=== PATIENT | male | born 1990 | race African-American/Black ===

== ENCOUNTER 2018-06-04 20:03 | Emergency (ER) | payer OTHER ==
[~2018-06-04] VITALS: Ht 188 cm; Wt 70.3 kg
--- NOTE | 2018-06-04 20:08 | ED.ADGEN ---
Adult General Chief Complaint Chief Complaint ".. I fell ... skate boarding..went down hard on this Lt elbow..." HPI HPI Patient is a 28 year old male who presents with above hx and complaints fall from a skateboard onto left elbow. Distal neurovascular intact. But his range of motion is limited in the left elbow. Patient is right-hand dominant. No other injuries. Patient normally healthy. No history immunosuppression. Patient travel. No history of ill contacts. Review of Systems Review of Systems Constitutional: Denies fever or chills [] Eyes: Denies change in visual acuity, redness, or eye pain [] HENT: Denies nasal congestion or sore throat [] Respiratory: Denies cough or shortness of breath [] Cardiovascular: No additional information not addressed in HPI [] GI: Denies abdominal pain, nausea, vomiting, bloody stools or diarrhea [] : Denies dysuria or hematuria [] Musculoskeletal: Denies back pain or joint pain []complains of left elbow pain Integument: Denies rash or skin lesions [] Neurologic: Denies headache, focal weakness or sensory changes [] Endocrine: Denies polyuria or polydipsia [] All other systems were reviewed and found to be within normal limits, except as documented in this note. Family History Family History Noncontributory Current Medications Current Medications Current Medications Medications (Trade) Dose Ordered Sig/Felicita Start Time Stop Time Status Last Admin Dose Admin Hydrocodone Bitartrate/ Ibuprofen (Vicoprofen 7.5-200) 2 tab 1X ONCE 06/04/18 21:15 06/04/18 21:16 DC 06/04/18 21:06 2 TAB Allergies Allergies Allergies Coded Allergies Type Severity Reaction Last Updated Verified No Known Drug Allergies 06/04/18 No Physical Exam Physical Exam Constitutional: Well developed, well nourished, moderate acute distress, non- toxic appearance. [] HENT: Normocephalic, atraumatic, bilateral external ears normal, oropharynx moist, no oral exudates, nose normal. [] Eyes: PERRLA, EOMI, conjunctiva normal, no discharge. [] Neck: Normal range of motion, no tenderness, supple, no stridor. [] Cardiovascular:Heart rate regular rhythm, no murmur [] Lungs & Thorax: Bilateral breath sounds clear to auscultation [] Abdomen: Bowel sounds normal, soft, no tenderness, no masses, no pulsatile masses. [] Skin: Warm, dry, no erythema, no rash. [] Back: No tenderness, no CVA tenderness. [] Extremities: No tenderness, no cyanosis, no clubbing, ROM intact, no edema. [] Except findings in left elbow Neurologic: Alert and oriented X 3, normal motor function, normal sensory function, no focal deficits noted. [] Psychologic: Affect anxious, judgement normal, mood normal. [] Current Patient Data Vital Signs Vital Signs Date Time Temp Pulse Resp B/P (MAP) Pulse Ox O2 Delivery O2 Flow Rate FiO2 06/04/18 20:24 98.3 68 18 99 Room Air EKG EKG [] Radiology/Procedures Radiology/Procedures Interpretation left elbow film shows edema. There appears to be a possible radial head fracture. See formal report when available[] Course & Med Decision Making Course & Med Decision Making Pertinent Labs and Imaging studies reviewed. (See chart for details) Ice, elevation, splint, sling, Tylenol and ibuprofen for pain. Follow-up primary care. Follow-up orthopedics. [] Final Impression Final Impression 1. Lt. Elbow[]-radial head fracture and contusion Dragon Disclaimer Dragon Disclaimer This electronic medical record was generated, in whole or in part, using a voice recognition dictation system. Discharge Summary Visit Information Final Diagnosis Problems Medical Problems: (1) Elbow disorder Status: Acute Brief Hospital Course Allergies Allergies Coded Allergies Type Severity Reaction Last Updated Verified No Known Drug Allergies 06/04/18 No Vital Signs Vital Signs Date Time Temp Pulse Resp B/P (MAP) Pulse Ox O2 Delivery O2 Flow Rate FiO2 06/04/18 20:24 98.3 68 18 99 Room Air Brief Hospital Course Mr. Espinosa is a 28 old male who presented with Lt. elbow contusion and radial head fx. Discharge Information Condition at Discharge: Improved, Stable Disposition/Orders: D/C to Home Dischare Medications Current Medications Hydrocodone Bitartrate/ Ibuprofen (Vicoprofen 7.5-200) 2 tab 1X ONCE PO Last administered on 06/04/18at 21:06; Admin Dose 2 TAB; Start 06/04/18 at 21:15; Stop 06/04/18 at 21:16; Status DC Dragon Disclaimer This chart was dictated in whole or in part using Voice Recognition software in a busy, high-work load, and often noisy Emergency Department environment. It may contain unintended and wholly unrecognized errors or omissions. JACOB ANDREW MD Jun 04, 2018 20:08
[2018-06-04 20:24] VITALS: BP 106/70
--- NOTE | 2018-06-04 21:05 | RAD ---
Indication: Trauma TECHNIQUE: 3 views of the left elbow COMPARISON: None FINDINGS: Moderate elbow joint effusion seen. Nondisplaced longitudinally oriented radial head fracture.. IMPRESSION: As above. Electronically signed by: Byron Seals DO (06/04/2018 9:02 PM) [facility]
[2018-06-04] MEDS ORDERED: HYDROcodon/IBUPROFEN 7.5/200MG 1 TAB TABLET PO ONE (21:15)
== END 2018-06-04 21:48 | disposition home or self-care (01) ==
LOC: ER 20:03
DX: S52.122A Displaced fracture of head of left radius, initial encounter for closed fracture (principal); V00.131A Fall from skateboard, initial encounter; Y93.51 Activity, roller skating (inline) and skateboarding; Y92.89 Other specified places as the place of occurrence of the external cause; Y99.8 Other external cause status
CPT/HCPCS: 29105; 73080; 99283

== ENCOUNTER → 2020-11-16 | Emergency (ER) | payer SELFPAY ==
[~2020-11-16] VITALS: Ht 188 cm; Wt 79.4 kg
[~2020-11-16] MED LIST: COLC0.6T45 PO; IBUP400T18 PO
--- NOTE | 2020-11-16 21:31 | PHYS DOC ---
Past History Past Medical History: No Pertinent History Past Surgical History: Other Alcohol Use: None Drug Use: None Adult General Chief Complaint Chief Complaint: FOREIGN BODY HPI HPI Patient is a 30-year-old male who presents to the emergency department with a chief complaint of concern for a piece of metal that he thinks he may have swallowed it was in his food. Review of Systems Review of Systems Review of systems otherwise unremarkable except noted in HPI Allergies Allergies Allergies Coded Allergies Type Severity Reaction Last Updated Verified No Known Drug Allergies 06/04/18 No Physical Exam Physical Exam Constitutional: Well developed, well nourished, no acute distress, non-toxic appearance. [] HENT: Normocephalic, atraumatic, oropharynx moist, no oral exudates, no bleeding, no obvious foreign bodies, nose normal. [] Eyes: conjunctiva normal, no discharge. [] Neck: Normal range of motion, no tenderness, supple, no stridor. [] Cardiovascular:Heart rate regular rhythm, no murmur [] Lungs & Thorax: Bilateral breath sounds clear to auscultation [] Abdomen: soft, no tenderness, no masses, no pulsatile masses. [] Skin: Warm, dry, no erythema, no rash. [] Neurologic: Alert and oriented X 3, normal motor function, normal sensory function, able to sit, stand and walk without issue, no focal deficits noted. [] Psychologic: Affect normal, judgement normal, mood normal. [] EKG EKG [] Radiology/Procedures Radiology/Procedures [] Heart Score C/O Chest Pain: No Risk Factors: Risk Factors: DM, Current or recent (<one month) smoker, HTN, HLP, family history of CAD, obesity. Risk Scores: Risk Factors: DM, Current or recent (<one month) smoker, HTN, HLP, family history of CAD, obesity. Course & Med Decision Making Course & Med Decision Making Patient is a 30-year-old male who presents due to concern for possibly swallowing a piece of metal while eating Vital signs not concerning. Physical exam noted above. Patient denies need for pain or nausea medicine. Imaging with no obvious foreign bodies. Patient asymptomatic in the ED. Patient stated he was taken back, and most likely may be a piece of aluminum foil. Discussed all findings with patient. Gave strict return precautions to the ED. Advised to follow-up with a primary care physician to set up a follow-up visit. Patient grateful, verbalized understanding and agreed with plan of discharge. Dragon Disclaimer Dragon Disclaimer This electronic medical record was generated, in whole or in part, using a voice recognition dictation system. Departure Departure: Impression: Primary Impression: Foreign body, swallowed Disposition: HOME / SELF CARE / HOMELESS Condition: GOOD Referrals: PCP,JOSE (PCP) RIA VERDIN MD Patient Instructions: Swallowed Foreign Body, Adult Additional Instructions: Thank you for coming into the emergency department tonight and allowing us to take care of you. Please read all the attached information above to go back over things we discussed. Please follow-up with a primary care physician soon as you can to update on ED visit and set up a follow-up. Please come back to the ED with new or concerning symptoms as we discussed. KAVITA GARRISON MD Nov 16, 2020 21:31
[2020-11-16 22:40] VITALS: BP 114/74
--- NOTE | 2020-11-16 23:19 | RAD ---
Exam: Single AP view of the chest 2 images single supine view the abdomen Indication: Reason: thinks he swallowed a piece of metal in his food / Spl. Instructions: / History: . Comparison: Unavailable. Findings: Chest: Normal cardiomediastinal silhouette. No focal airspace consolidation, pneumothorax, or pleural effusi on. No radiopaque foreign material visualized. No acute osseous findings. ABDOMEN: Nonobstructive bowel gas pattern. No radiopaque metallic foreign material visualized. No fred ss evidence of free intra-abdominal air. There is a moderate colorectal stool burden. No acute osseou s findings. Impression: Unremarkable chest and abdominal radiographs with no evidence of ingested metallic foreign bodies Electronically signed by: Sunny Daniels DO (11/16/2020 11:16 PM) [facility]
--- NOTE | 2020-11-16 23:19 | RAD ---
Exam: Single AP view of the chest 2 images single supine view the abdomen Indication: Reason: thinks he swallowed a piece of metal in his food / Spl. Instructions: / History: . Comparison: Unavailable. Findings: Chest: Normal cardiomediastinal silhouette. No focal airspace consolidation, pneumothorax, or pleural effusi on. No radiopaque foreign material visualized. No acute osseous findings. ABDOMEN: Nonobstructive bowel gas pattern. No radiopaque metallic foreign material visualized. No fred ss evidence of free intra-abdominal air. There is a moderate colorectal stool burden. No acute osseou s findings. Impression: Unremarkable chest and abdominal radiographs with no evidence of ingested metallic foreign bodies Electronically signed by: Sunny Daniels DO (11/16/2020 11:16 PM) [facility]
== END | disposition home or self-care (01) ==
LOC: ER 21:15
DX: T18.8XXA Foreign body in other parts of alimentary tract, initial encounter (principal); X58.XXXA Exposure to other specified factors, initial encounter; Y93.89 Activity, other specified; Y92.89 Other specified places as the place of occurrence of the external cause; Y99.8 Other external cause status
CPT/HCPCS: 71045; 74018; 99284-25